=== PATIENT | female | born 1940 | race Caucasian/White ===

== ENCOUNTER → 2016-07-01 | Outpatient (CLI) | payer OTHER ==
[~2016-07-01] VITALS: Ht 170.2 cm; Wt 49.9 kg
[~2016-07-01] MED LIST: ALBUTEROL2.5 MG/0.5 INH; ANASPAZ0.125 MG SL; ASPIR 8181 MG PO; CAL-CITRATE PL1 EACH PO; FLORINEF ACETA0.1 MG PO; MIDODRINE HCL 55 M1 PO; NEXIUM40 MG PO; OMEPRAZOLE20 M2 PO; OXYBUTYNIN 5 MG5 M1 PO; TYLENOL325 MG PO; VITAMIN D31000 UNI2 PO
--- NOTE | ~2016-07-01 | P ---
[facility] [place] [address] PROCEDURE REPORT Name: DIANE PARKER Room #: [facility] Igor#: [id number] Admission: 07/01/16 Attend Phys: Elton Benitez Discharge: Date of : 42 Report #: [id number] THIS REPORT FOR: //name// CC: Naga Shen DO DATE OF SERVICE: 07/01/2016 PROCEDURE PERFORMED: Upper endoscopy with Botox injection. HISTORY OF PRESENT ILLNESS: The patient is a 75-year-old female with a history of achalasia who has undergone 2 Botox injections in the past originally on 12/01/2015, not much benefit; after a second Botox in December; however, she did get some benefit and was able to gain some weight. She has been losing weight again recently, still complains of dysphagia, this primarily taking soft and liquids only. We discussed proceeding with a Heller myotomy surgery, she has actually seen Dr. Naga Galdamez; however, with her other medical problems and significant kyphosis, we discussed repeating Botox further time before considering surgery. PROCEDURE: The risks and benefits of the procedure were explained to the patient, those risks including, but not limited to bleeding, perforation, and the risk of sedation. She understood these risks and gave informed consent. Sedation was given using propofol and ketamine per anesthesia. Next, using a standard Fujinon upper endoscope, the scope was placed in the patient's mouth and advanced under direct vision through the esophagus, stomach and into the second portion of the duodenum. In the esophagus, the proximal and mid esophagus were significantly dilated and was filled with a mixture of liquid and semisolid food. I was able aspirate this out away with the scope, approximately 500 mL or more was aspirated away. The distal esophagus was very torturous, the GE junction was actually normal. There was a narrowing near the GE junction, not with a stricture, but consistent with achalasia. Upon entering the stomach, a large hiatal hernia was once again noted. Overall, the gastric mucosa was normal. The pylorus was normal and patent. The duodenal bulb, first and second portion were all normal. The scope was then brought back up into the distal esophagus and Botox was injected in a 4-quadrant fashion near the GE junction in the lower esophageal sphincter area without difficulty. There was no bleeding after injection. At this point, the scope was then withdrawn and the procedure terminated. The patient tolerated the procedure well. IMPRESSION: 1. Dilated proximal and mid esophagus with a combination of food and liquid consistent with achalasia, this was aspirated away, lower esophageal sphincter area was injected with Botox in 4 quadrants. [facility] [address] [place] [address] PROCEDURE REPORT Name: DIANE PARKER Room #: [facility] Costa#: [id number] Admission: 07/01/16 Attend Phys: Elton Benitez Discharge: Date of : 42 Report #: [id number] 2. Large hiatal hernia. 3. Otherwise, normal upper endoscopy. RECOMMENDATIONS: Observe the patient post-procedure. If this is helpful, we will plan on repeating likely in approximately 6 months. If the patient gets no benefit, we may need to consider again surgical options. Thank you for allowing me to participate in her care. <ELECTRONICALLY SIGNED> By: Elton Montes MD 07/02/16 1341 [id number] 1419 Elton Montes MD /nt
== END | disposition home or self-care (01) ==
LOC: GI 08:12
DX: K22.0 Achalasia of cardia (principal); R13.10 Dysphagia, unspecified; K44.9 Diaphragmatic hernia without obstruction or gangrene; Z95.5 Presence of coronary angioplasty implant and graft; K21.9 Gastro-esophageal reflux disease without esophagitis; Z98.890 Other specified postprocedural states
CPT/HCPCS: 62110; 62900

== ENCOUNTER 2016-11-04 11:20 | Inpatient (IN) | payer OTHER | END 2016-11-09 13:46 | disposition home health service (06) | DRG 689 | LOC: ER 11:20 → EROBS 15:34 → 3N 17:39 | DX: N39.0 Urinary tract infection, site not specified (principal); E43 Unspecified severe protein-calorie malnutrition; J98.11 Atelectasis; Z68.1 Body mass index [BMI] 19.9 or less, adult; K21.9 Gastro-esophageal reflux disease without esophagitis; G89.29 Other chronic pain; M54.9 Dorsalgia, unspecified; K22.0 Achalasia of cardia; I95.89 Other hypotension; J84.10 Pulmonary fibrosis, unspecified; K44.9 Diaphragmatic hernia without obstruction or gangrene; D53.9 Nutritional anemia, unspecified; E87.6 Hypokalemia; E83.42 Hypomagnesemia; I51.7 Cardiomegaly; K57.30 Diverticulosis of large intestine without perforation or abscess without bleeding; K59.00 Constipation, unspecified; Z79.899 Other long term (current) drug therapy; Z88.8 Allergy status to other drugs, medicaments and biological substances ==

== ENCOUNTER → 2016-11-27 | Outpatient (CLI) | payer OTHER ==
[~2016-11-27] VITALS: Ht 170.2 cm; Wt 43.5 kg
[~2016-11-27] MED LIST changes: +KLOR-CON 1010 MEQ PO; +MAGOX 400400 MG PO; +PROTONIX40 M1 PO
--- NOTE | ~2016-11-27 | P ---
[facility] [place] [address] PROCEDURE REPORT Name: DIANE PARKER [id number] Admission: 11/27/16 Attend Phys: Elton Benitez Discharge: Date of : 42 Report #: [id number] THIS REPORT FOR: //name// CC: Victor Manuel Montes DATE OF SERVICE: 11/27/2016 PROCEDURE PERFORMED: Upper endoscopy with Botox injection and PEG tube placement. HISTORY OF PRESENT ILLNESS: The patient is a 75-year-old female with significant achalasia who has undergone several Botox injections in the past. Despite this, she has continued significant weight loss and dysphagia. She is not a good candidate due to her severe kyphosis Heller myotomy surgery, therefore we discussed PEG tube placement. PROCEDURE: The risks and benefits of the procedure were explained to the patient, those risks including, but not limited to bleeding, perforation, the risk of sedation as well as potential risk for infection. She understood these risks and gave informed consent. One gram of Ancef was given prior to the procedure. Sedation was given using propofol per anesthesia. Next, using a standard Lumenzn upper endoscope, the scope was placed in the patient's mouth and advanced under direct vision through the esophagus, stomach and into the second portion of the duodenum. The esophagus was significantly dilated as before with a large amount of semi-liquid fluid and food, large of this was aspirated away. Several washings and aspirations were then performed. The GE junction was normal other than narrowing noted at the GE junction consistent with her achalasia. Overall, the gastric mucosa was normal. She has a large hiatal hernia. As we discussed in the office before, she would like the tube as low as possible due to her kyphosis and not having the tube rub on her lower costal margin. I was able to find an area in the antrum that transilluminated well. This was actually below the umbilicus on the left quadrant of the abdomen. This area was then marked and the skin was cleaned with a sterile Betadine. Next, a sterile drape was put in place. Next, lidocaine was used as a local anesthetic. Next, a seeker needle was advanced through the skin into the gastric lumen under direct vision without difficulty. Next, a 1-cm transverse incision was then made through the skin. Next, a catheter needle was advanced through the mid portion of the incision again into the gastric lumen under direct vision without difficulty. The needle was removed. The catheter remained in place. A blue guidewire was inserted through the catheter into the gastric lumen, this was grasped with a snare through the endoscope and then brought back up to the patient's mouth. A 20-Slovenian PEG tube was then secured to the blue guidewire and using a pull technique, it was put into position without difficulty. The scope was reintroduced into the patient's mouth and [address] [address] PROCEDURE REPORT Name: DIANE PARKER Room #: [facility] Costa#: [id number] Admission: 11/27/16 Attend Phys: Elton Benitez Discharge: Date of : 42 Report #: [id number] into the stomach. The PEG tube bumper was noted to be in good position in the gastric antral area. The tube was then secured to the anterior abdominal wall. Next, the scope was then brought back up into the patient's distal esophagus and Botox was injected in 4 quadrants at the GE junction without difficulty. At this point, the scope was then withdrawn and the procedure terminated. The patient tolerated the procedure well. IMPRESSION: 1. Changes consistent with significant achalasia again noted with a large amount of semi-liquid food within the esophagus aspirated away. 2. Successful placement of PEG tube. 3. Status post Botox injection of the lower esophageal sphincter area. RECOMMENDATIONS: 1. Observe the patient post-procedure. 2. We will start using PEG tube tomorrow. Thank you for allowing me to participate in her care. <ELECTRONICALLY SIGNED> By: Elton Montes MD 11/29/16 1151 1215 1413 Elton Montes MD /nt
== END | disposition home or self-care (01) ==
LOC: GI 09:43
DX: K22.0 Achalasia of cardia (principal); K44.9 Diaphragmatic hernia without obstruction or gangrene; D53.9 Nutritional anemia, unspecified; Z98.890 Other specified postprocedural states; Z95.1 Presence of aortocoronary bypass graft; Z86.73 Personal history of transient ischemic attack (TIA), and cerebral infarction without residual deficits
CPT/HCPCS: 62110; 62900